=== PATIENT | female | born 1995 | race Caucasian/White ===

== ENCOUNTER 2019-01-16 14:29 | Emergency (ER) | payer SELFPAY ==
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
[2019-01-16] MEDS ORDERED: ONDANSETRON HCL/PF 4 MG/ 2ML VIAL IVP ONE (16:02)
[2019-01-16] MEDS ORDERED: 0.9 % SODIUM CHLORIDE 1,000 ML IV ONE (16:02)
[2019-01-16 17:01] VITALS: BP 132/72
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
== END 2019-01-16 17:00 | disposition home or self-care (01) ==
LOC: ED 14:29
DX: M54.2 Cervicalgia (principal); M54.9 Dorsalgia, unspecified
CPT/HCPCS: 70450; 72125; 72128; 81025; 96361; 96374; 99282; 99284; J2405; J7030; S1016